=== PATIENT | male | born 1975 | race Caucasian/White ===

== ENCOUNTER 2016-11-15 03:46 | Inpatient (IN) | payer OTHER ==
[~2016-11-15] VITALS: Ht 182.9 cm; Wt 127.0 kg
[~2016-11-15 03:46] MED LIST: CLOBETASOL PROP15 GM TOP; VISTARIL50 M1 PO
--- NOTE | 2016-11-15 04:00 | NUR ---
PT TO ED C/O DIFFUSE ABDOMINAL PAIN THAT RADIATES TO BACK. PT REPORTS ABDOMINAL PAIN STARTING AT 730 PM, GOING TO SLEEP AND WAKING UP WITH PAIN IN THE BACK. PT REPORTS VOMITING AFTER BURPING. PT DENIES N/D, FEVER AND CHILLS. PT DENIES URINARY SYMPTOMS
--- NOTE | 2016-11-15 04:00 | ED GI/GU/ABDOMINAL COMPLAINT ---
History of Present Illness General Chief Complaint: Abdominal Pain/Flank Pain Stated Complaint: ABD AND LOWER BACK PAIN Source: patient, old records Exam Limitations: no limitations Vital Signs & Intake/Output Vital Signs & Intake/Output Vital Signs Date Time Temp Pulse Resp B/P B/P Pulse O2 O2 Flow FiO2 Mean Ox Delivery Rate 11/15 0639 97.5 76 20 128/64 96 Room Air 11/15 0527 96.6 79 20 182/90 98 Room Air 11/15 0356 98.9 95 20 139/72 96 Room Air Allergies Coded Allergies: No Known Allergies (12/13/15) Reconcile Medications Atorvastatin Calcium (Lipitor) 80 MG TABLET 80 MG PO DAILY HIGH CHOLESTROL ( Reported) Clopidogrel Bisulfate (Clopidogrel) 75 MG TABLET 75 MG PO DAILY HIGH BLOOD PRESSURE (Reported) Ergocalciferol (Vitamin D2) (Vitamin D2) 50,000 UNIT CAPSULE 1 CAP PO DAILY HEALTH SUPPLEMENT (Reported) Fenofibric Acid (Choline) (Fenofibric Acid) 135 MG CAPSULE.DR 135 MG PO DAILY KIDNEY HEALTH (Reported) Lisinopril/Hydrochlorothiazide (Lisinopril-Hctz 10-12.5 MG Tab) 10 MG-12.5 MG TABLET 1 TAB PO BID HIGH BLOOD PRESSURE (Reported) Metoprolol Tartrate 25 MG TABLET 25 MG PO DAILY HIGH BLOOD PRESSURE (Reported ) Montelukast Sodium 10 MG TABLET 10 MG PO DAILY ALLERGIES (Reported) Triage Nurses Notes Reviewed? yes HPI: At approximately 8 PM last evening patient began to develop a discomfort feeling in his periumbilical and epigastric area that radiated to his back. The symptoms have worsened. Patient was able to go to sleep but then was within with the pain. At that point he became nauseous and vomited once. No fevers or chills. Patient was unable to sleep and again the pain woke him up and his tenderness was more intense. He rates the pain at 8 out of 10. It radiates as directed above. There is no aggravating or mitigating factors. Patient denies any diarrhea. There is no dysuria or hematuria. Past History Travel History Traveled to [place] past 21 day No Medical History Any Pertinent Medical History? see below for history Neurological: NONE EENT: NONE Cardiovascular: CAD Respiratory: NONE Gastrointestinal: NONE Hepatic: NONE Renal: NONE Musculoskeletal: NONE Psychiatric: NONE Endocrine: diabetes Blood Disorders: NONE Cancer(s): NONE Surgical History Surgical History: angioplasty Psychosocial History What is your primary language Peruvian Tobacco Use: Quit >30 days ago ETOH Use: occasional use Illicit Drug Use: denies illicit drug use Family History Hx Contributory? No Review of Systems Review of Systems Constitutional: Reports: no symptoms. EENTM: Reports: no symptoms. Respiratory: Reports: no symptoms. Cardiovascular: Reports: no symptoms. GI: Reports: see HPI, abdominal pain, nausea, vomiting. Genitourinary: Reports: no symptoms. Musculoskeletal: Reports: see HPI, back pain. Skin: Reports: no symptoms. Neurological/Psychological: Reports: no symptoms. Hematologic/Endocrine: Reports: no symptoms. Immunologic/Allergic: Reports: no symptoms. All Other Systems: Reviewed and Negative Physical Exam Physical Exam General Appearance: well developed/nourished, alert, awake, anxious, moderate distress Head: atraumatic, normal appearance Eyes: Bilateral: PERRL, EOMI. Ears, Nose, Throat, Mouth: hearing grossly normal, DRY MUCOSA Neck: normal inspection, supple, full range of motion Respiratory: normal breath sounds, chest non-tender, no respiratory distress, lungs clear Cardiovascular: regular rate/rhythm, normal peripheral pulses Gastrointestinal: normal bowel sounds, soft, non-tender, no organomegaly Back: normal inspection, normal range of motion, NO CVA TENDERNESS Extremities: normal range of motion Neurologic/Psych: no motor/sensory deficits, awake, alert, oriented x 3, normal gait, normal mood/affect Skin: intact, normal color, warm/dry Core Measures ACS in differential dx? No Severe Sepsis Present: No Septic Shock Present: No Progress Differential Diagnosis: AAA, AMI, appendicitis, biliary colic, cholecystitis, diverticulitis, gastritis, hepatitis, ischemic bowel, inflamm bowel dis, pancreatitis, peptic ulcer, PUD/GERD, SBO, ureterolithiasis, UTI/pyelo Plan of Care: Orders Procedure Date/time Status Admit to inpatient 11/15 534 Active URINALYSIS 11/15 356 Active TROPONIN LEVEL 11/15 356 Complete LIPASE 11/15 356 Complete COMPREHENSIVE METABOLIC PANEL 11/15 356 Complete CBC WITHOUT DIFFERENTIAL 11/15 356 Complete AMYLASE 11/15 356 Complete EKG 11/15 356 Active Laboratory Tests 11/15/16 0415: Anion Gap 13, Estimated GFR 39 L, BUN/Creatinine Ratio 21.1, Glucose 123 H, Calcium 9.9, Total Bilirubin 0.6, AST 43, ALT 75 H, Alkaline Phosphatase 57, Troponin I < 0.01, Total Protein 7.6, Albumin 4.7, Globulin 2.9, Albumin/ Globulin Ratio 1.6, Amylase 77, Lipase 105, CBC w Diff NO MAN DIFF REQ, RBC 5.11 , MCV 86.4, MCH 28.7, RDW 13.5, MPV 9.1, Gran % 69.6, Lymphocytes % 21.0, Monocytes % 6.8, Eosinophils % 2.2, Basophils % 0.4, Absolute Granulocytes 5.5, Absolute Lymphocytes 1.7, Absolute Monocytes 0.5, Absolute Eosinophils 0.2, Absolute Basophils 0, PUBS MCHC 33.2 Diagnostic Imaging: Viewed by Me: CT Scan. Discussed w/RAD: CT Scan. Radiology Impression: PATIENT: YAZ FELTON PRESENT AGE: 41 PATIENT ACCOUNT NO: [id number] : 76 LOCATION: [facility] ORDERING PHYSICIAN: GIUSEPPE OROZCO MD SERVICE DATE: 11/15/16 EXAM TYPE: CAT - CT ABD & PELVIS W/O IV CONTRAS CT ABDOMEN AND PELVIS WITHOUT CONTRAST CLINICAL INFORMATION: Bilateral flank pain. COMPARISON: None available. TECHNIQUE: Multidetector volumetric imaging was performed from the superior aspect of the liver through the pubic symphysis. Sagittal and coronal reformatted images were obtained on the technologist's workstation. FINDINGS: There is a small bowel obstruction. The stomach and proximal small bowel are significantly dilated and fluid-filled the level of a transition point within the left mid abdomen and fecalized small bowel just proximal to the transition point. Bowel is otherwise unremarkable. There is no free air. The appendix is normal. The lung bases are clear. Limited evaluation of the unenhanced liver, spleen, adrenal glands, gallbladder, and pancreas reveals no definite abnormality. The kidneys are symmetric in size without evidence of hydronephrosis or nephrolithiasis. The pelvic viscera are normal. No pelvic adenopathy. No free fluid within the pelvis. There are no acute osseous abnormalities. There is a small fat- containing umbilical hernia. IMPRESSION: - Imaging findings compatible with a small bowel obstruction with a transition point within the left mid abdomen, proximal to which there is significantly distended fecalized small bowel. - No radiopaque renal or ureteral calculi. No hydroureteronephrosis. DICTATED BY: KATLYN MASTERSON MD DATE/TIME DICTATED:11/15/16512 DIRECTOR PHYSICAL THERAPY:YEFRI DATE/TIME TRANSCRIBED:11/15/16512 CONFIDENTIAL, DO NOT COPY WITHOUT APPROPRIATE AUTHORIZATION. <Electronically signed in Other Vendor System> SIGNED BY: KATLYN MASTERSON MD 11/15/16522 Initial ED EKG: NSR, no ST T wave changes Prior EKG: unchanged Comments: NO RELIEF FROM TORADOL. Departure Departure Disposition: STILL A PATIENT Condition: Stable Clinical Impression Primary Impression: SBO (small bowel obstruction) Referrals: ALINA NEWTON,DARIUS Diamond (PCP/Family) Departure Forms: Customer Survey General Discharge Information Admission Note Spoke With: RUBEN NEWTON,COY Guevara Documentation of Exam: Documentation of any treatments & extenuating circumstances including Concerns Regarding Discharge (functional status, medication knowledge or non-compliance, living conditions, etc.) that warrant an admission rather than observation: [NPO , IV FLUIDS, BOWEL REST, PAIN CONTROL, MAY REQUIRE SURGERY] , IV FLUIDS, BOWEL REST, PAIN CONTROL, MAY REQUIRE SURGERY]
--- NOTE | 2016-11-15 04:11 | NUR ---
EKG DONE AND SHOWN TO DR. OROZCO.
--- NOTE | 2016-11-15 04:17 | NUR ---
THIS RN ESTABLISHED IV ACCESS IN LFA #20 WITH LABS DRAWN AND SENT (SST, JACKSON, LAV, BLUE)
--- NOTE | 2016-11-15 04:23 | NUR ---
PT MEDICATED WITH 4MG ZOFRAN IV, 30MG TORADOL IV, AND LITER #1 NS BOLUS INFUSING PER EMAR.
[2016-11-15 04:24] LABS: ABSOLUTE BASOPHIL COUNT 0 /CUMM (0.0-0.2); ABSOLUTE EOSINOPHIL COUNT 0.2 /CUMM (0.0-0.7); ABSOLUTE GRANULOCYTE CT 5.5 /CUMM (1.4-6.5); ABSOLUTE LYMPH COUNT 1.7 /CUMM (1.2-3.4); ABSOLUTE MONOCYTE COUNT 0.5 /CUMM (0.10-0.60); BASOPHIL % 0.4 % (0.0-2.0); EOSINOPHIL % 2.2 % (0-5); GRANULOCYTE % 69.6 % (42.2-75.2); HEMATOCRIT 44.2 % (42-52); MEAN CORPUSCULAR HGB 28.7 PG (27.0-31.0); MEAN CORPUSCULAR HGB CONC 33.2 G/DL (33.0-37.0); MEAN CORPUSCULAR VOLUME 86.4 FL (80.0-94.0); MEAN PLATELET VOLUME 9.1 FL (7.4-10.4); PLATELET COUNT 282 /CUMM (130-400); RBC DISTRIBUTION WIDTH 13.5 % (11.5-14.5); RED BLOOD CELL CT 5.11 /CUMM (4.70-6.10); WHITE BLOOD CELL COUNT 7.9 /CUMM (4.8-10.8)
--- NOTE | 2016-11-15 04:24 | NUR ---
PT AWAITING CT SCAN
--- NOTE | 2016-11-15 04:43 | NUR ---
PT MEDICATED WITH 4MG MORPHINE IV PER EMAR.
--- NOTE | 2016-11-15 04:53 | NUR ---
PT BACK FROM RAD.
--- NOTE | 2016-11-15 05:23 | CT SCAN REPORT ---
CT ABDOMEN AND PELVIS WITHOUT CONTRAST CLINICAL INFORMATION: Bilateral flank pain. COMPARISON: None available. TECHNIQUE: Multidetector volumetric imaging was performed from the superior aspect of the liver through the pubic symphysis. Sagittal and coronal reformatted images were obtained on the technologist's workstation. FINDINGS: There is a small bowel obstruction. The stomach and proximal small bowel are significantly dilated and fluid-filled the level of a transition point within the left mid abdomen and fecalized small bowel just proximal to the transition point. Bowel is otherwise unremarkable. There is no free air. The appendix is normal. The lung bases are clear. Limited evaluation of the unenhanced liver, spleen, adrenal glands, gallbladder, and pancreas reveals no definite abnormality. The kidneys are symmetric in size without evidence of hydronephrosis or nephrolithiasis. The pelvic viscera are normal. No pelvic adenopathy. No free fluid within the pelvis. There are no acute osseous abnormalities. There is a small fat-containing umbilical hernia. IMPRESSION: - Imaging findings compatible with a small bowel obstruction with a transition point within the left mid abdomen, proximal to which there is significantly distended fecalized small bowel. - No radiopaque renal or ureteral calculi. No hydroureteronephrosis.
--- NOTE | 2016-11-15 05:39 | NUR ---
PT STILL C/O / PAIN. PT MEDICATED WITH 4MG MORPHINE PER ORDER
[2016-11-15] MEDS ORDERED: MONTELUKAST SOD10 M1 PO (06:01)
[2016-11-15] MEDS ORDERED: LISINOPRIL-HCT1 EAC2 PO (06:02)
[2016-11-15] MEDS ORDERED: METOPROLOL TART25 M1 PO (06:02)
[2016-11-15] MEDS ORDERED: CLOPIDOGREL75 M1 PO (06:03)
[2016-11-15] MEDS ORDERED: LIPITOR80 M1 PO (06:05)
[2016-11-15] MEDS ORDERED: VITAMIN D250000 UNIT PO (06:06)
[2016-11-15] MEDS ORDERED: FENOFIBRIC ACI135 M1 PO (06:08)
--- NOTE | 2016-11-15 06:09 | NUR ---
PT A/O X4. RESP UNLABORED. SKIN WARM AND DRY. 96% RA. WILL CONTINUE TO MONITOR.
--- NOTE | 2016-11-15 06:09 | NUR ---
PT STILL C/O 12/03 PAIN. PT MEDICATED WITH 1MG HYDROMORPHONE
--- NOTE | 2016-11-15 07:07 | NUR ---
ASSUMED CARE OF PT WHO IS A&O X3. PT STATES HIS PAIN IS STARTING TO COME BACK. DR OROZCO MADE AWARE. PT CHANGING INTO GOWN PRESENTLY AND IS AWARE HE IS WAITING FOR SURGICAL CONSULT. WILL CTM
--- NOTE | 2016-11-15 07:23 | NUR ---
SURGERY AT BEDSIDE FOR EVALUATION
[2016-11-15] MEDS ORDERED: ASPIRIN EC81 M1 PO (07:56)
--- NOTE | 2016-11-15 08:07 | Admission Core Measures ---
Admission Lab Results I reviewed the following labs: Laboratory Tests 11/15 11/15 0656 0415 Chemistry Sodium (137 - 145 mmol/L) 140 Potassium (3.5 - 5.1 mmol/L) 4.3 Chloride (98 - 107 mmol/L) 97 L Carbon Dioxide (22 - 30 mmol/L) 30 Anion Gap (5 - 16) 13 BUN (9 - 20 mg/dL) 40 H Creatinine (0.7 - 1.2 mg/dL) 1.9 H Estimated GFR (>60 ml/min) 39 L BUN/Creatinine Ratio (7 - 25 %) 21.1 Glucose (65 - 99 mg/dL) 123 H Calcium (8.4 - 10.2 mg/dL) 9.9 Total Bilirubin (0.2 - 1.3 mg/dL) 0.6 AST (17 - 59 U/L) 43 ALT (21 - 72 U/L) 75 H Alkaline Phosphatase (< 127 U/L) 57 Troponin I (<0.11 ng/ml) < 0.01 Total Protein (6.3 - 8.2 g/dL) 7.6 Albumin (3.5 - 5.0 g/dL) 4.7 Globulin (1.9 - 4.2 gm/dL) 2.9 Albumin/Globulin Ratio (1.1 - 2.2 %) 1.6 Amylase (30 - 110 U/L) 77 Lipase (23 - 300 U/L) 105 Hematology CBC w Diff NO MAN DIFF REQ WBC (4.8 - 10.8 /CUMM) 7.9 RBC (4.70 - 6.10 /CUMM) 5.11 Hgb (14.0 - 18.0 G/DL) 14.6 Hct (42 - 52 %) 44.2 MCV (80.0 - 94.0 FL) 86.4 MCH (27.0 - 31.0 PG) 28.7 RDW (11.5 - 14.5 %) 13.5 Plt Count (130 - 400 /CUMM) 282 MPV (7.4 - 10.4 FL) 9.1 Gran % (42.2 - 75.2 %) 69.6 Lymphocytes % (20.5 - 51.1 %) 21.0 Monocytes % (1.7 - 9.3 %) 6.8 Eosinophils % (0 - 5 %) 2.2 Basophils % (0.0 - 2.0 %) 0.4 Absolute Granulocytes (1.4 - 6.5 /CUMM) 5.5 Absolute Lymphocytes (1.2 - 3.4 /CUMM) 1.7 Absolute Monocytes (0.10 - 0.60 /CUMM) 0.5 Absolute Eosinophils (0.0 - 0.7 /CUMM) 0.2 Absolute Basophils (0.0 - 0.2 /CUMM) 0 PUBS MCHC (33.0 - 37.0 G/DL) 33.2 Urines Urinalysis LIGHT H Urine Color (YEL,AMB,STR) YEL Urine Clarity (CLEAR) CLEAR Urine pH (5.0 - 8.0) 6.0 Ur Specific [place] (1.001 - 1.035) 1.020 Urine Protein (NEG,<30 MG/DL) TRACE H Urine Ketones (NEG) NEG Urine Nitrite (NEG) NEG Urine Bilirubin (NEG) NEG Urine Urobilinogen (0.1 - 1.0 EU/dl) 0.2 Ur Leukocyte Esterase (NEG) NEG Ur Microscopic SEDIMENT EXAMINED Urine WBC (0 - 2 /HPF) RARE Ur Epithelial Cells (NONE,FEW) RARE Urine Bacteria (NEG/NONE) RARE H Urine Hemoglobin (NEG) NEG Urine Glucose (N MG/DL) NEG Admission Meds I reviewed the following Meds: Current Medications Sig/Markel Start time Last Medication Dose Stop Time Status Admin Famotidine 20 MG BID 11/15 1000 UNVr (Pepcid) Heparin Sodium 5,000 UNIT Q8 11/15 2200 UNVr (Porcine) Hydromorphone HCl 0.4 MG Q2-3 HRS NEEDED.. 11/15 0815 UNVr (Dilaudid) Hydromorphone HCl 0.6 MG Q2-3 HRS NEEDED.. 11/15 0815 UNVr (Dilaudid) Hydromorphone HCl 0.2 MG Q2-3 HRS NEEDED.. 11/15 0800 UNVr (Dilaudid) Insulin Human Regular 0 Q4 11/15 1000 UNVr (NovoLIN R) Metoprolol Tartrate 25 MG BID 11/15 1000 UNVr (Lopressor) Ondansetron HCl 4 MG Q6P PRN 11/15 0800 UNVr (Zofran) Phenol 2 SPRAY Q2P PRN 11/15 0815 UNVr (Chloraseptic (Phenaseptic) Raymond) Sodium Chloride 1,000 ML Q8H 11/15 0800 UNVr (Normal Saline 0.9%) Acute Coronary Syndrome Inclusion Criteria ACS Diagnosis No Inpatient Core Measures LDL Reminder: If No, please order W/I first 24hr of stay Congestive Heart Failure Inclusion Criteria CHF Diagnosis No Cerebrovascular accident Inclusion Criteria CVA/TIA Diagnosis No Inpatient Core Measures Bedside Swallow Eval Reminder: If BSE failed, place ST order Antithrombotic Reminder: Order Antithrombotic Medication by end of day 2 Antithrombotic Reminder: Document Reason Antithrombotic Not ordered by end of day 2 AFIB/Flutter Reminder: If Present, add to problem list AFIB/Flutter Reminder: Order Anticoag Medication for pts with AFIB/Flutter Atherosclerosis Reminder: If Present, add to problem list LDL Reminder: If No, please order W/I first 24hr of stay PT Order Reminder: If No, please order Venous thromboembolism Inpatient Core Measures VTE Risk Factors: Age > 40, Obesity [facility] d/t No contraindications No VTE Pharm Prophylaxis d/t No contraindications Inclusion Criteria - Per Current guidelines, there needs to be overlap - treatment for the first 5 days of Warfarin therapy. - Parenteral Anticoagulation (IV or SC) needs to be - given along with Warfarin therapy. VTE Diagnosis No VTE Type NONE VTE Confirmed by (Test) NONE Problem List As ranked by this Provider includes Assessment & Plan 1. SBO (small bowel obstruction) 2. Acute kidney failure 3. Chronic kidney disease 4. Insulin dependent diabetes mellitus 5. Hypertension 6. H/O heart artery stent HOME MEDS Home Med List Aspirin (Ecotrin*) 81 MG TABLET. 1 TAB PO DAILY HX CARDIAC STENT (Reported) Atorvastatin Calcium (Lipitor) 80 MG TABLET 80 MG PO DAILY HIGH CHOLESTROL ( Reported) Clopidogrel Bisulfate (Clopidogrel) 75 MG TABLET 75 MG PO DAILY HIGH BLOOD PRESSURE (Reported) Ergocalciferol (Vitamin D2) (Vitamin D2) 50,000 UNIT CAPSULE 1 CAP PO DAILY HEALTH SUPPLEMENT (Reported) Fenofibric Acid (Choline) (Fenofibric Acid) 135 MG CAPSULE.DR 135 MG PO DAILY KIDNEY HEALTH (Reported) Lisinopril/Hydrochlorothiazide (Lisinopril-Hctz 10-12.5 MG Tab) 10 MG-12.5 MG TABLET 1 TAB PO BID HIGH BLOOD PRESSURE (Reported) Metoprolol Tartrate 25 MG TABLET 25 MG PO BID BLOOD PRESSURE (Reported) Montelukast Sodium 10 MG TABLET 10 MG PO DAILY ALLERGIES (Reported)
--- NOTE | 2016-11-15 08:30 | History & Physical Pre-Op ---
REEMA LUX 11/15/16 0807: General Information and HPI MD Statement: I have seen and personally examined YAZ FELTON and documented this H&P. The patient is a 41 year old M who presented with a patient stated chief complaint of [ABDOMINAL PAIN]. Source of Information: patient History of Present Illness: This 41 year old white male with hx cad s/p cardiac stent, insulin-dependent diabetes with insulin pump, chronic kidney disease (reported baseline creatinine 1.7), hypertension, hyperlipidemia, presents with crampy abdominal pain. He reports the crampy pain started last night about an hour after eating food. He awoke from sleep around midnight with continued pain and an episode of vomiting. He denied any episodes of nausea. He reports +bm "normal" around 8 pm last night. Denies history of abdominal surgery. No prior episodes of abdominal pain like this. He does admit to following a "ketosis diet" over the last 7 weeks, with a 23 lb weight loss. He also admits to a "cheese binge" on monday (about 4 days ago), when he reportedly consumed about 7 cheese sticks at once. He denies any subsequent binging episodes. Although he usually has insulin pump, he is currently not connected in the ED. He had stopped his usual aspirin (but apparently hadn't been told to stop his daily plavix), in anticipation of an outpatient plastic surgery procedure for a cyst/bump on his scalp, which was planned for tomorrow (11/16/16). Allergies/Medications Allergies: Coded Allergies: No Known Allergies (12/13/15) Past History Medical History Neurological: NONE EENT: NONE Cardiovascular: CAD, hypertension, hyperlipidemia Respiratory: NONE Gastrointestinal: NONE Hepatic: NONE Renal: chronic kidney disease Musculoskeletal: NONE Psychiatric: NONE Endocrine: NONE (insulin dependent), diabetes Blood Disorders: NONE Cancer(s): NONE Surgical History Pertinent Surgical History: angioplasty Past Family/Social History Family History Relations & Conditions if any Relation not specified for: FH: coronary artery disease Psychosocial History ETOH Use: occasional use Illicit Drug Use: denies illicit drug use Review of Systems Review of Systems: admits: abdominal pain, vomiting denies: dizziness, shortness of breath, chest pains, nauseam, f/c/s Exam & Diagnostic Data Last 24 Hrs of Vital Signs/I&O Vital Signs Date Time Temp Pulse Resp B/P B/P Pulse O2 O2 Flow FiO2 Mean Ox Delivery Rate 11/15 0639 97.5 76 20 128/64 96 Room Air 11/15 0527 96.6 79 20 182/90 98 Room Air 11/15 0356 98.9 95 20 139/72 96 Room Air Intake & Output 11/15 1600 11/15 0800 11/15 0000 Intake Total 100 2000 Output Total 100 Balance 0 2000 Intake, IV 2000 Intake, Other 100 Output, 100 Gastric Drainage Patient 280 lb Weight Physical Exam: General - alert & oriented x 3. comfortable. no acute distress. Skin - warm, dry, and smooth Lungs - clear bilaterally. no w/r/r. Cardiac - s1s2. reg. Abdomen - soft. no scars visualized. diffusely tender, but without acute abdominal findings. nondistended. no hernias appreciated. Extremities - warm bilaterally. no w/r/r. Calves soft and nontender b/l. Neuro - speech smooth & coordinated. no motor / sensory deficits. Last 24 Hrs of Labs/Jamison: Laboratory Tests 11/15/16 0656: Urinalysis LIGHT H, Urine Color YEL, Urine Clarity CLEAR, Urine pH 6.0, Ur Specific [place] 1.020, Urine Protein TRACE H, Urine Ketones NEG, Urine Nitrite NEG, Urine Bilirubin NEG, Urine Urobilinogen 0.2, Ur Leukocyte Esterase NEG, Ur Microscopic SEDIMENT EXAMINED, Urine WBC RARE, Ur Epithelial Cells RARE, Urine Bacteria RARE H, Urine Hemoglobin NEG, Urine Glucose NEG 11/15/16 0415: Anion Gap 13, Estimated GFR 39 L, BUN/Creatinine Ratio 21.1, Glucose 123 H, Calcium 9.9, Total Bilirubin 0.6, AST 43, ALT 75 H, Alkaline Phosphatase 57, Troponin I < 0.01, Total Protein 7.6, Albumin 4.7, Globulin 2.9, Albumin/ Globulin Ratio 1.6, Amylase 77, Lipase 105, CBC w Diff NO MAN DIFF REQ, RBC 5.11 , MCV 86.4, MCH 28.7, RDW 13.5, MPV 9.1, Gran % 69.6, Lymphocytes % 21.0, Monocytes % 6.8, Eosinophils % 2.2, Basophils % 0.4, Absolute Granulocytes 5.5, Absolute Lymphocytes 1.7, Absolute Monocytes 0.5, Absolute Eosinophils 0.2, Absolute Basophils 0, PUBS MCHC 33.2 Diagnostic Data Other Results CT ABDOMEN AND PELVIS WITHOUT CONTRAST CLINICAL INFORMATION: Bilateral flank pain. COMPARISON: None available. TECHNIQUE: Multidetector volumetric imaging was performed from the superior aspect of the liver through the pubic symphysis. Sagittal and coronal reformatted images were obtained on the technologist's workstation. FINDINGS: There is a small bowel obstruction. The stomach and proximal small bowel are significantly dilated and fluid-filled the level of a transition point within the left mid abdomen and fecalized small bowel just proximal to the transition point. Bowel is otherwise unremarkable. There is no free air. The appendix is normal. The lung bases are clear. Limited evaluation of the unenhanced liver, spleen, adrenal glands, gallbladder, and pancreas reveals no definite abnormality. The kidneys are symmetric in size without evidence of hydronephrosis or nephrolithiasis. The pelvic viscera are normal. No pelvic adenopathy. No free fluid within the pelvis. There are no acute osseous abnormalities. There is a small fat-containing umbilical hernia. IMPRESSION: - Imaging findings compatible with a small bowel obstruction with a transition point within the left mid abdomen, proximal to which there is significantly distended fecalized small bowel. - No radiopaque renal or ureteral calculi. No hydroureteronephrosis. DICTATED BY: KATLYN MASTERSON MD DATE/TIME DICTATED:11/15/16512 SPINNING LATHE OPERATOR:YEFRI DATE/TIME TRANSCRIBED:11/15/16512 Assessment/Plan Assessment/Plan: This 41 year old white male with hx cad s/p cardiac stent, insulin-dependent diabetes with insulin pump, chronic kidney disease (reported baseline creatinine 1.7), hypertension, hyperlipidemia, presents with small bowel obstruction with likely associated food bezoar and dehydration with associated acute kidney injury npo / ivf ng tube decompression pain control as needed endocrine consult called () for iddm / insulin pump currently detached accuchecks q4 / ss coverage hold lisinopril / hctz continue metoprolol bid hep sc - dvt ppx pepcid iv - gi ppx hold aspirin / plavix. will need to reschedule outpatient plastic surgery procedure (planned 11/16) discussed above with As Ranked By This Provider Problem List: 1. Acute kidney failure 2. Chronic kidney disease 3. Hypertension 4. H/O heart artery stent 5. Insulin dependent diabetes mellitus 6. SBO (small bowel obstruction) Copies To: ALINA NEWTON,DARIUS MIRANDA MD,[facility] 11/15/16 1254: General Information and HPI Allergies/Medications Home Med list Aspirin (Ecotrin*) 81 MG TABLET.DR 1 TAB PO DAILY HX CARDIAC STENT (Reported) Atorvastatin Calcium (Lipitor) 80 MG TABLET 80 MG PO DAILY HIGH CHOLESTROL ( Reported) Clopidogrel Bisulfate (Clopidogrel) 75 MG TABLET 75 MG PO DAILY HIGH BLOOD PRESSURE (Reported) Ergocalciferol (Vitamin D2) (Vitamin D2) 50,000 UNIT CAPSULE 1 CAP PO DAILY HEALTH SUPPLEMENT (Reported) Fenofibric Acid (Choline) (Fenofibric Acid) 135 MG CAPSULE.DR 135 MG PO DAILY KIDNEY HEALTH (Reported) Insulin Pump Controller (Snap Insulin Pump Controller) (Unknown Strength) EACH (Unknown Dose) insulin dependent diabetes (Reported) Lisinopril/Hydrochlorothiazide (Lisinopril-Hctz 10-12.5 MG Tab) 10 MG-12.5 MG TABLET 1 TAB PO BID HIGH BLOOD PRESSURE (Reported) Metoprolol Tartrate 25 MG TABLET 25 MG PO BID BLOOD PRESSURE (Reported) Montelukast Sodium 10 MG TABLET 10 MG PO DAILY ALLERGIES (Reported) Attending MD Review Statement Attending Statement Attending MD Statement: examined this patient, discuss w/resident/PA/ELECTRICAL DISCHARGE MACHINE OPERATOR, reviewed images Attending Assessment/Plan: signs and symptoms of intestinal obstruction. Ct shows same with proximal obstruction. Unusual finding in light of no prior abdominal surgery. ? food impaction. No findings to suggest threatened bowel loop. Observe, bowel rest/ngt /ivf.
--- NOTE | 2016-11-15 08:49 | RADIOLOGY REPORT ---
EXAMINATION:\\H\\ \\N\\XR CHEST/UPPER ABDOMEN CLINICAL INFORMATION: NG tube placement. COMPARISON: CT of the abdomen done earlier today. (Small bowel obstruction). TECHNIQUE: 2 AP erect films of the upper abdomen. FINDINGS: The tip of the NG tube is in the dilated fluid and air-filled stomach. The "[place] gas pattern" in the midabdomen supports the diagnosis of small bowel obstruction. Air and stool are seen in the colon. However, and the obstruction is presumably incomplete or early. The dilated small bowel loops are best appreciated on the CT exam. IMPRESSION: NG tube in a dilated stomach.
--- NOTE | 2016-11-15 09:30 | NUR ---
FAMILY MEMBER AT BEDSIDE. PT TOLERATING NG TUBE.
--- NOTE | 2016-11-15 11:42 | NUR ---
Patient resting quietly. NGT to R nare remains patent and to low wall suction.
--- NOTE | 2016-11-15 12:47 | NUR ---
BED ASSIGNMENT [id number]
--- NOTE | 2016-11-15 13:14 | NUR ---
Assigned bed not available at this time. Room is not clean at this time.
--- NOTE | 2016-11-15 13:37 | Cons- Endocrinology ---
General Information and HPI Consulting Request Date of Consult: 11/15/16 Requested By: Surgical team Reason for Consult: management of DM Source of Information: patient, old records Exam Limitations: no limitations History of Present Illness: 41 year old white male with hx CAD s/p cardiac stent, insulin-dependent diabetes with insulin pump, chronic kidney disease (reported baseline creatinine 1.7), hypertension, hyperlipidemia, presents with crampy abdominal pain. He was diagnosed with SBO. He was kept NPO and was put on NS at 125 ml/hour. Insulin pump was disconnected approximately 4 hours ago and his FSG was 235 at 8 am. Insulin pump setting: basal insulin: 89.95 units /24 hours midnight 3.25 units per hour; 3 am 3.75 units per hour 7:30 am 3.6 units per hour 11 am 2.5 units per hour 12 pm 3.2 units per hour 4 pm 4.75 units per hour 10:30 pm 3.0 units per hour IC ratio midnight 10 grams 8:30 am 8.o grams 4:30 pm 3.8 grams 8:30 pm 8 grams insulin sensitivity midnight 25 mg/dl 9 pm 40 mg/dl target 100 -100 mg/dl active insulin time 3 hours Allergies/Medications Allergies: Coded Allergies: No Known Allergies (12/13/15) Home Med List: Aspirin (Ecotrin*) 81 MG TABLET.DR 1 TAB PO DAILY HX CARDIAC STENT (Reported) Atorvastatin Calcium (Lipitor) 80 MG TABLET 80 MG PO DAILY HIGH CHOLESTROL ( Reported) Clopidogrel Bisulfate (Clopidogrel) 75 MG TABLET 75 MG PO DAILY HIGH BLOOD PRESSURE (Reported) Ergocalciferol (Vitamin D2) (Vitamin D2) 50,000 UNIT CAPSULE 1 CAP PO DAILY HEALTH SUPPLEMENT (Reported) Fenofibric Acid (Choline) (Fenofibric Acid) 135 MG CAPSULE.DR 135 MG PO DAILY KIDNEY HEALTH (Reported) Lisinopril/Hydrochlorothiazide (Lisinopril-Hctz 10-12.5 MG Tab) 10 MG-12.5 MG TABLET 1 TAB PO BID HIGH BLOOD PRESSURE (Reported) Metoprolol Tartrate 25 MG TABLET 25 MG PO BID BLOOD PRESSURE (Reported) Montelukast Sodium 10 MG TABLET 10 MG PO DAILY ALLERGIES (Reported) Review of Systems Review of Systems Constitutional: Reports: see HPI. Cardiovascular: Denies: chest pain. Respiratory: Denies: short of breath. GI: Reports: abdominal pain. Hematologic/Endocrine: Denies: polyuria, polydipsia. Past History Travel History Traveled to [place] past 21 day No Medical History Neurological: NONE EENT: NONE Cardiovascular: CAD, hypertension, hyperlipidemia Respiratory: NONE Gastrointestinal: NONE Hepatic: NONE Renal: chronic kidney disease Musculoskeletal: NONE Psychiatric: NONE Endocrine: NONE (insulin dependent), diabetes Blood Disorders: NONE Cancer(s): NONE Surgical History Surgical History: angioplasty Family History Relations & Conditions If Any: Relation not specified for: FH: coronary artery disease Psychosocial History ETOH Use: occasional use Illicit Drug Use: denies illicit drug use Exam & Diagnostic Data Last 24 Hrs of Vital Signs/I&O Vital Signs Date Time Temp Pulse Resp B/P B/P Pulse O2 O2 Flow FiO2 Mean Ox Delivery Rate 11/15 1239 98.0 88 18 107/58 97 Room Air 11/15 1027 94 18 142/74 94 Room Air 11/15 1003 94 18 142/74 11/15 0639 97.5 76 20 128/64 96 Room Air 11/15 0527 96.6 79 20 182/90 98 Room Air 11/15 0356 98.9 95 20 139/72 96 Room Air Intake & Output 11/15 1600 11/15 0800 11/15 0000 Intake Total 100 2000 Output Total 100 Balance 0 2000 Intake, IV 2000 Intake, Other 100 Output, 100 Gastric Drainage Patient 280 lb Weight Physical Exam General Appearance: no apparent distress Neck: normal inspection Respiratory: lungs clear Cardiovascular: regular rate/rhythm Gastrointestinal: distention Extremities: no edema Labs/Jamison Results: Laboratory Tests 11/15 11/15 0656 0415 Chemistry Sodium (137 - 145 mmol/L) 140 Potassium (3.5 - 5.1 mmol/L) 4.3 Chloride (98 - 107 mmol/L) 97 L Carbon Dioxide (22 - 30 mmol/L) 30 Anion Gap (5 - 16) 13 BUN (9 - 20 mg/dL) 40 H Creatinine (0.7 - 1.2 mg/dL) 1.9 H Estimated GFR (>60 ml/min) 39 L BUN/Creatinine Ratio (7 - 25 %) 21.1 Glucose (65 - 99 mg/dL) 123 H Calcium (8.4 - 10.2 mg/dL) 9.9 Total Bilirubin (0.2 - 1.3 mg/dL) 0.6 AST (17 - 59 U/L) 43 ALT (21 - 72 U/L) 75 H Alkaline Phosphatase (< 127 U/L) 57 Troponin I (<0.11 ng/ml) < 0.01 Total Protein (6.3 - 8.2 g/dL) 7.6 Albumin (3.5 - 5.0 g/dL) 4.7 Globulin (1.9 - 4.2 gm/dL) 2.9 Albumin/Globulin Ratio (1.1 - 2.2 %) 1.6 Amylase (30 - 110 U/L) 77 Lipase (23 - 300 U/L) 105 Hematology CBC w Diff NO MAN DIFF REQ WBC (4.8 - 10.8 /CUMM) 7.9 RBC (4.70 - 6.10 /CUMM) 5.11 Hgb (14.0 - 18.0 G/DL) 14.6 Hct (42 - 52 %) 44.2 MCV (80.0 - 94.0 FL) 86.4 MCH (27.0 - 31.0 PG) 28.7 RDW (11.5 - 14.5 %) 13.5 Plt Count (130 - 400 /CUMM) 282 MPV (7.4 - 10.4 FL) 9.1 Gran % (42.2 - 75.2 %) 69.6 Lymphocytes % (20.5 - 51.1 %) 21.0 Monocytes % (1.7 - 9.3 %) 6.8 Eosinophils % (0 - 5 %) 2.2 Basophils % (0.0 - 2.0 %) 0.4 Absolute Granulocytes (1.4 - 6.5 /CUMM) 5.5 Absolute Lymphocytes (1.2 - 3.4 /CUMM) 1.7 Absolute Monocytes (0.10 - 0.60 /CUMM) 0.5 Absolute Eosinophils (0.0 - 0.7 /CUMM) 0.2 Absolute Basophils (0.0 - 0.2 /CUMM) 0 PUBS MCHC (33.0 - 37.0 G/DL) 33.2 Urines Urinalysis LIGHT H Urine Color (YEL,AMB,STR) YEL Urine Clarity (CLEAR) CLEAR Urine pH (5.0 - 8.0) 6.0 Ur Specific [place] (1.001 - 1.035) 1.020 Urine Protein (NEG,<30 MG/DL) TRACE H Urine Ketones (NEG) NEG Urine Nitrite (NEG) NEG Urine Bilirubin (NEG) NEG Urine Urobilinogen (0.1 - 1.0 EU/dl) 0.2 Ur Leukocyte Esterase (NEG) NEG Ur Microscopic SEDIMENT EXAMINED Urine WBC (0 - 2 /HPF) RARE Ur Epithelial Cells (NONE,FEW) RARE Urine Bacteria (NEG/NONE) RARE H Urine Hemoglobin (NEG) NEG Urine Glucose (N MG/DL) NEG Assessment/Plan Assessment/Plan 41 year old white male with hx CAD s/p cardiac stent, insulin-dependent diabetes with insulin pump, chronic kidney disease (reported baseline creatinine 1.7), hypertension, hyperlipidemia, presents with crampy abdominal pain. He was diagnosed with SBO. He was kept NPO and was put on NS at 125 ml/hour. plan: 1. as per hospital policy, insulin pump will be held at this point. 2. start Levemir 30 units twice a day; 3. start Novolog coverage every 4 hours;detail see the inpatient DM order; 4. monitor FSGs; 5. monitor electrolytes and renal function in the afternoon; will follow. Please call if there are any questions. I will consider adding dextrose to his IVF if his FSG is < 140. Inpatient Diabetes Orders Every 4 Hours: Bolus Insulin: Novolog < 80 mg/dl: no coverage 80-100 mg/dl: no coverage 101-120 mg/dl: no coverage 121-150 mg/dl: no coverage 151-200 mg/dl: 2 units 201-250 mg/dl: 4 units 251-300 mg/dl: 6 units 301-350 mg/dl: 8 units 351-400 mg/dl: 10 units > 400 mg/dl: 12 units Consult Acknowledgment - Thank you for your consult request.
--- NOTE | 2016-11-15 13:39 | NUR ---
Patient is currently able to pass flatus. BS + all 4 quads.
--- NOTE | 2016-11-15 14:00 | NUR ---
PATIENT IS UP TO BR. ABLE TO AMBULATE W/O ASSISTANCE. ABLE TO HAVE REGULAR BM.
--- NOTE | 2016-11-15 15:30 | NUR ---
UP TO BR FOR THE 3RD TIME. REQUESTING TO HAVE NGT REMOVED. HAVE SPOKEN W/ SURGICAL PA. SHE WILL CHECK W/ ATTENDING AND RETURN THE CALL.
--- NOTE | 2016-11-15 15:37 | Patient Discharge Instructions ---
Discharge Instructions General Discharge Information You were seen/treated for: small bowel obstruction, dehydration You had these procedures: nasogastric tube decompression, iv fluids Watch for these problems: fever>101.3, increased abdominal pain, recurrent nausea/vomiting Diet Continue normal diet: Yes Recommended Diet: Diabetic Activity Full Activity/No Limits: Yes Activity Self Limited: Yes Acute Coronary Syndrome Inclusion Criteria At DC or during hospital stay patient has or had the following: ACS DIAGNOSIS No Discharge Core Measures Meds if any: Prescribed or Continued at Discharge Meds if any: NOT Prescribed or Continued at Discharge Congestive Heart Failure Inclusion Criteria At DC or during hospital stay patient has or had the following: CHF DIAGNOSIS No Discharge Core Measures Meds if any: Prescribed or Continued at Discharge Meds if any: NOT Prescribed or Continued at Discharge Cerebrovascular accident Inclusion Criteria At DC or during hospital stay patient has or had the following: CVA/TIA Diagnosis No Discharge Core Measures Meds if any: Prescribed or Continued at Discharge Meds if any: NOT Prescribed or Continued at Discharge Venous thromboembolism Inclusion Criteria VTE Diagnosis No VTE Type NONE VTE Confirmed by (Test) NONE Discharge Core Measures - Per Current guidelines, there needs to be overlap - treatment for the first 5 days of Warfarin therapy. - If discharged on Warfarin prior to 5 days of - overlap therapy, the patient will need to be - assessed for post discharge needs including - *Post discharge parental anticoagulation - *Warfarin and/or parental anticoagulation education - *Follow up date to check INR post discharge At least 5 days overlap therapy as Inpatient No Meds if any: Prescribed or Continued at Discharge Note: Overlap Therapy is Warfarin and Anticoagulant Meds if any: NOT Prescribed or Continued at Discharge
[2016-11-15] MEDS ORDERED: SNAP INSULIN P1 EACH (15:39)
--- NOTE | 2016-11-15 16:00 | NUR ---
LABS DRAWN AND SENT
--- NOTE | 2016-11-15 16:30 | NUR ---
ADMISSION NOTE: PT ARRIVED TO FLOOR IN [facility] WITH DISTRIBUTION AND MOTHER, A/OX3, ROOM AIR, IV INTACT, IVF RUNNING PER MD ORDER, NG TUBE TO RT NARE, PAIN 7/10 TO RT NARE, 3/10 PAIN TO ABD, ORDER TO DC NG TUBE, PT TOLERATED PROCEDURE VERY WELL!, VSS, ORIENTED TO ROOM, WILL CONTINUE TO MONTIOR.
[2016-11-15 16:38] VITALS: BP 168/100
--- NOTE | 2016-11-15 16:44 | RADIOLOGY REPORT ---
EXAMINATION: XR ABDOMEN MULTIPLE VIEWS CLINICAL INDICATION: 41-year-old male patient with NG tube. Bowel obstruction. COMPARISON: CT of the abdomen and pelvis at 4:40 AM today and upper abdominal x-ray at 8:22 AM today TECHNIQUE: AP supine and erect views of the abdomen, 3 exposures. FINDINGS: The tip of the NG tube remains in the stomach. There is now air throughout the colon to the rectum. The stomach contains some air and fluid. The visualized small bowel is not dilated and no short air-fluid levels are seen. IMPRESSION: The bowel obstruction has evidently resolved. The NG tube is in the stomach. No free air is appreciated.
[2016-11-15 23:09] VITALS: BP 124/60
--- NOTE | 2016-11-16 07:32 | PN- General Surgery ---
See Addendum Subjective Subjective: improved, no n/v, no abd pain, +oob, +flatus, +bm (more formed now), hungry Objective Vital Signs and I&Os Vital Signs Date Time Temp Pulse Resp B/P B/P Pulse O2 O2 Flow FiO2 Mean Ox Delivery Rate 11/15 2309 98.4 77 18 124/60 95 Room Air 11/15 2208 77 124/60 11/15 1638 97.5 77 18 168/100 95 11/15 1526 98.2 84 18 122/60 98 Room Air 11/15 1239 98.0 88 18 107/58 97 Room Air 11/15 1027 94 18 142/74 94 Room Air 11/15 1003 94 18 142/74 Intake & Output 11/16 0800 11/16 0000 11/15 1600 11/15 0800 11/15 0000 11/14 1600 Intake Total 940 919 5649 Output Total 500 700 Balance 240 -600 2000 Intake, IV 500 2000 Intake, Oral 240 Intake, Other 100 Number 0 2 Bowel Movements Output, 700 Gastric Drainage Output, Urine 500 Patient 280 lb 280 lb Weight FINGERSTICKS: 80, 135, 224, 248 Physical Exam: gen: nad card: s1s2 rrr pulm: ctab abd: obese, soft, nt, nd ext: calves soft nt bl Results Last 48 Hours of Labs: Laboratory Tests 11/16 11/15 11/15 0700 1600 0656 Chemistry Sodium (137 - 145 mmol/L) Pending 138 Potassium (3.5 - 5.1 mmol/L) Pending 4.8 Chloride (98 - 107 mmol/L) Pending 104 Carbon Dioxide (22 - 30 mmol/L) Pending 22 Anion Gap (5 - 16) Pending 12 BUN (9 - 20 mg/dL) Pending 44 H Creatinine (0.7 - 1.2 mg/dL) Pending 2.0 H Estimated GFR (>60 ml/min) 37 L BUN/Creatinine Ratio (7 - 25 %) Pending 22.0 Glucose (65 - 99 mg/dL) 169 H Magnesium (1.6 - 2.3 mg/dL) Pending 2.1 Hematology CBC w Diff Pending WBC Pending RBC Pending Hgb Pending Hct Pending MCV Pending MCH Pending RDW Pending Plt Count Pending MPV Pending PUBS MCHC Pending Urines Urinalysis LIGHT H Urine Color (YEL,AMB,STR) YEL Urine Clarity (CLEAR) CLEAR Urine pH (5.0 - 8.0) 6.0 Ur Specific [place] (1.001 - 1.035) 1.020 Urine Protein (NEG,<30 MG/DL) TRACE H Urine Ketones (NEG) NEG Urine Nitrite (NEG) NEG Urine Bilirubin (NEG) NEG Urine Urobilinogen (0.1 - 1.0 EU/dl) 0.2 Ur Leukocyte Esterase (NEG) NEG Ur Microscopic SEDIMENT EXAMINED Urine WBC (0 - 2 /HPF) RARE Ur Epithelial Cells (NONE,FEW) RARE Urine Bacteria (NEG/NONE) RARE H Urine Hemoglobin (NEG) NEG Urine Glucose (N MG/DL) NEG 11/15 0415 Chemistry Sodium (137 - 145 mmol/L) 140 Potassium (3.5 - 5.1 mmol/L) 4.3 Chloride (98 - 107 mmol/L) 97 L Carbon Dioxide (22 - 30 mmol/L) 30 Anion Gap (5 - 16) 13 BUN (9 - 20 mg/dL) 40 H Creatinine (0.7 - 1.2 mg/dL) 1.9 H Estimated GFR (>60 ml/min) 39 L BUN/Creatinine Ratio (7 - 25 %) 21.1 Glucose (65 - 99 mg/dL) 123 H Calcium (8.4 - 10.2 mg/dL) 9.9 Total Bilirubin (0.2 - 1.3 mg/dL) 0.6 AST (17 - 59 U/L) 43 ALT (21 - 72 U/L) 75 H Alkaline Phosphatase (< 127 U/L) 57 Troponin I (<0.11 ng/ml) < 0.01 Total Protein (6.3 - 8.2 g/dL) 7.6 Albumin (3.5 - 5.0 g/dL) 4.7 Globulin (1.9 - 4.2 gm/dL) 2.9 Albumin/Globulin Ratio (1.1 - 2.2 %) 1.6 Amylase (30 - 110 U/L) 77 Lipase (23 - 300 U/L) 105 Hematology CBC w Diff NO MAN DIFF REQ WBC (4.8 - 10.8 /CUMM) 7.9 RBC (4.70 - 6.10 /CUMM) 5.11 Hgb (14.0 - 18.0 G/DL) 14.6 Hct (42 - 52 %) 44.2 MCV (80.0 - 94.0 FL) 86.4 MCH (27.0 - 31.0 PG) 28.7 RDW (11.5 - 14.5 %) 13.5 Plt Count (130 - 400 /CUMM) 282 MPV (7.4 - 10.4 FL) 9.1 Gran % (42.2 - 75.2 %) 69.6 Lymphocytes % (20.5 - 51.1 %) 21.0 Monocytes % (1.7 - 9.3 %) 6.8 Eosinophils % (0 - 5 %) 2.2 Basophils % (0.0 - 2.0 %) 0.4 Absolute Granulocytes (1.4 - 6.5 /CUMM) 5.5 Absolute Lymphocytes (1.2 - 3.4 /CUMM) 1.7 Absolute Monocytes (0.10 - 0.60 /CUMM) 0.5 Absolute Eosinophils (0.0 - 0.7 /CUMM) 0.2 Absolute Basophils (0.0 - 0.2 /CUMM) 0 PUBS MCHC (33.0 - 37.0 G/DL) 33.2 Assessment/Plan Assessment/Plan HD1, improved. PLAN: diabetic full liquids cont IVF- fu Cr. Labs pdg appreciate Endo input. FS improved. No D5 added to IVF since diet advanced. OOB, hep sq DC planning Core Measures/Miscellaneous Venous Thromboembolism VTE Risk Factors: Age > 40 VTE Contraindications: No Contraindications VTE Diagnosis: No VTE Type: NONE VTE Confirmed by (Test): NONE Beta Thea Is Beta Thea a Home Med? Yes Antibiotics Is Patient on Antibiotics? No
[2016-11-16 07:42] VITALS: BP 141/76
[2016-11-16 08:05] LABS: ABSOLUTE BASOPHIL COUNT 0 /CUMM (0.0-0.2); ABSOLUTE EOSINOPHIL COUNT 0.2 /CUMM (0.0-0.7); ABSOLUTE GRANULOCYTE CT 3.1 /CUMM (1.4-6.5); ABSOLUTE LYMPH COUNT 1.6 /CUMM (1.2-3.4); ABSOLUTE MONOCYTE COUNT 0.4 /CUMM (0.10-0.60); BASOPHIL % 0.7 % (0.0-2.0); EOSINOPHIL % 3.7 % (0-5); GRANULOCYTE % 57.9 % (42.2-75.2); HEMATOCRIT 39.4 % (42-52); MEAN CORPUSCULAR HGB 29.3 PG (27.0-31.0); MEAN CORPUSCULAR HGB CONC 33.9 G/DL (33.0-37.0); MEAN CORPUSCULAR VOLUME 86.3 FL (80.0-94.0); MEAN PLATELET VOLUME 9.7 FL (7.4-10.4); PLATELET COUNT 266 /CUMM (130-400); RED BLOOD CELL CT 4.57 /CUMM (4.70-6.10); WHITE BLOOD CELL COUNT 5.4 /CUMM (4.8-10.8)
--- NOTE | 2016-11-16 09:03 | PN- Diabetes ---
Assessment/Plan Assessment: 41 year old white male with hx CAD s/p cardiac stent, insulin-dependent diabetes with insulin pump, chronic kidney disease (reported baseline creatinine 1.7), hypertension, hyperlipidemia, presents with crampy abdominal pain. He was diagnosed with SBO. He was started on clear liquid diet and will be on full liquid diet today. He is still receiving NS at 125 ml/hour. He wasput on Levemir 30 units twice a day, Novolog coverage every 4 hours. His FSGs were 135, 80 and 117. Plan: 1. continue Levemir 30 units twice a day; 2. stop Novolog coverage every 4 hours; 3. start Novolog coverage before meals and Novolog coverage at bedtime. 4. monitor FSGs; will follow Inpatient Diabetes Orders Before Each Meal: Bolus Insulin: Novolog < 80 mg/dl: no coverage 80-100 mg/dl: 2 units 101-120 mg/dl: 2 units 121-150 mg/dl: 2 units 151-200 mg/dl: 4 units 201-250 mg/dl: 6 units 251-300 mg/dl: 8 units 301-350 mg/dl: 10 units 351-400 mg/dl: 12 units > 400 mg/dl: 14 units Bedtime: Bolus Insulin: Novolog < 80 mg/dl: no coverage 80-100 mg/dl: no coverage 101-120 mg/dl: no coverage 121-150 mg/dl: no coverage 151-200 mg/dl: no coverage 201-250 mg/dl: no coverage 251-300 mg/dl: 2 units 301-350 mg/dl: 4 units 351-400 mg/dl: 6 units > 400 mg/dl: 8 units Subjective Subjective: He tolerated clear liquid diet. Objective Last 24 Hrs of Vital Signs/I&O Vital Signs Date Time Temp Pulse Resp B/P B/P Pulse O2 O2 Flow FiO2 Mean Ox Delivery Rate 11/16 0742 98.0 75 20 141/76 95 Room Air 11/15 2309 98.4 77 18 124/60 95 Room Air 11/15 2208 77 124/60 11/15 1638 97.5 77 18 168/100 95 11/15 1526 98.2 84 18 122/60 98 Room Air 11/15 1239 98.0 88 18 107/58 97 Room Air 11/15 1027 94 18 142/74 94 Room Air 11/15 1003 94 18 142/74 Intake & Output 11/16 1600 11/16 0800 11/16 0000 Intake Total 1240 740 Output Total 850 500 Balance -850 1240 240 Intake, IV 1000 500 Intake, Oral 240 240 Number 1 0 Bowel Movements Output, Urine 850 500 Patient 280 lb Weight Findings Pertinent Lab/Jamison Results: Laboratory Tests 11/16 11/15 0700 1600 Chemistry Sodium (137 - 145 mmol/L) 140 138 Potassium (3.5 - 5.1 mmol/L) 4.8 4.8 Chloride (98 - 107 mmol/L) 105 104 Carbon Dioxide (22 - 30 mmol/L) 24 22 Anion Gap (5 - 16) 11 12 BUN (9 - 20 mg/dL) 30 H 44 H Creatinine (0.7 - 1.2 mg/dL) 1.7 H 2.0 H Estimated GFR (>60 ml/min) 45 L 37 L BUN/Creatinine Ratio (7 - 25 %) 17.6 22.0 Glucose (65 - 99 mg/dL) 169 H Magnesium (1.6 - 2.3 mg/dL) 2.0 2.1 Hematology CBC w Diff NO MAN DIFF REQ WBC (4.8 - 10.8 /CUMM) 5.4 RBC (4.70 - 6.10 /CUMM) 4.57 L Hgb (14.0 - 18.0 G/DL) 13.4 L Hct (42 - 52 %) 39.4 L MCV (80.0 - 94.0 FL) 86.3 MCH (27.0 - 31.0 PG) 29.3 RDW (11.5 - 14.5 %) 14.0 Plt Count (130 - 400 /CUMM) 266 MPV (7.4 - 10.4 FL) 9.7 Gran % (42.2 - 75.2 %) 57.9 Lymphocytes % (20.5 - 51.1 %) 29.8 Monocytes % (1.7 - 9.3 %) 7.9 Eosinophils % (0 - 5 %) 3.7 Basophils % (0.0 - 2.0 %) 0.7 Absolute Granulocytes (1.4 - 6.5 /CUMM) 3.1 Absolute Lymphocytes (1.2 - 3.4 /CUMM) 1.6 Absolute Monocytes (0.10 - 0.60 /CUMM) 0.4 Absolute Eosinophils (0.0 - 0.7 /CUMM) 0.2 Absolute Basophils (0.0 - 0.2 /CUMM) 0 PUBS MCHC (33.0 - 37.0 G/DL) 33.9
[2016-11-16 09:27] VITALS: BP 141/76
--- NOTE | 2016-11-16 11:32 | Surg Short-stay <48hrs Dis Sum ---
Visit Information Visit Dates Admission Date: 11/15/16 Discharge Date: 11/16/16 Surgical Short Stay DC Summary Admission Diagnosis: SBO Final Diagnosis: SAME Procedure(s): NONE Summary/Significant Findings: QUICK RESOLUTION OF SBO, LIKELY CHEESE BEZOAR Condition at Discharge: GOOD Discharge Disposition: home or self care Discharge instructions provided to patient/family: Yes Post discharge follow-up plan: NONE
== END 2016-11-16 12:27 | DRG 390 ==
LOC: ERH 03:46 → 2NB 05:35 → ERHI 05:35 → ENRESERV 12:44 → ENTRNSPT 15:54 → 2NB 16:31 → CMPTRNSPT 11-16 07:18 → ENPENDDIS 11-16 09:33 → 2NB 11-16 12:27
PROVIDERS: Emergency Medicine; Physician Assistant; ADMIT Surgery
DX: K56.60 Unspecified intestinal obstruction (principal); T18.3XXA Foreign body in small intestine, initial encounter; E11.22 Type 2 diabetes mellitus with diabetic chronic kidney disease; E66.9 Obesity, unspecified; Z68.38 Body mass index [BMI] 38.0-38.9, adult; I25.10 Atherosclerotic heart disease of native coronary artery without angina pectoris; Z79.4 Long term (current) use of insulin; Z95.5 Presence of coronary angioplasty implant and graft; X58.XXXA Exposure to other specified factors, initial encounter; E78.5 Hyperlipidemia, unspecified; I12.9 Hypertensive chronic kidney disease with stage 1 through stage 4 chronic kidney disease, or unspecified chronic kidney disease; N18.9 Chronic kidney disease, unspecified; Z96.41 Presence of insulin pump (external) (internal)
CPT/HCPCS: 2NBSP; 74020; 74176; 81001; 82436; 93005; 93010; 96361; 96374; 96375; 96376; J1644; J1885; J2405

== ENCOUNTER 2016-12-03 15:42 | Emergency (ER) | payer OTHER ==
[~2016-12-03] VITALS: Ht 182.9 cm; Wt 124.7 kg
[~2016-12-03 15:42] MED LIST changes: +ASPIRIN EC81 M1 PO; +CLOPIDOGREL75 M1 PO; +FENOFIBRIC ACI135 M1 PO; +LIPITOR80 M1 PO; +LISINOPRIL-HCT1 EAC2 PO; +METOPROLOL TART25 M1 PO; +MONTELUKAST SOD10 M1 PO; +SNAP INSULIN P1 EACH; +VITAMIN D250000 UNIT PO
[2016-12-03 15:48] VITALS: BP 129/77
[2016-12-03] MEDS ORDERED: TRIAMCINOLONE A15 G2 TOP (16:00)
--- NOTE | 2016-12-03 16:01 | ED SKIN/ALLERGY COMPLAINT ---
History of Present Illness General Chief Complaint: Skin Rash/ Abcess Stated Complaint: SKIN RASH Source: patient Exam Limitations: no limitations Vital Signs & Intake/Output Vital Signs & Intake/Output ED Intake and Output 12/04 0000 12/03 1200 Intake Total 0 Output Total Balance 0 Intake, Oral 0 Patient 275 lb Weight Weight Reported by Patient Measurement Method Allergies Coded Allergies: No Known Allergies (12/13/15) Reconcile Medications Aspirin (Ecotrin*) 81 MG TABLET. 1 TAB PO DAILY HX CARDIAC STENT (Reported) Atorvastatin Calcium (Lipitor) 80 MG TABLET 80 MG PO DAILY HIGH CHOLESTROL ( Reported) Clopidogrel Bisulfate (Clopidogrel) 75 MG TABLET 75 MG PO DAILY HIGH BLOOD PRESSURE (Reported) Ergocalciferol (Vitamin D2) (Vitamin D2) 50,000 UNIT CAPSULE 1 CAP PO DAILY HEALTH SUPPLEMENT (Reported) Fenofibric Acid (Choline) (Fenofibric Acid) 135 MG CAPSULE.DR 135 MG PO DAILY KIDNEY HEALTH (Reported) Insulin Pump Controller (Snap Insulin Pump Controller) (Unknown Strength) EACH (Unknown Dose) insulin dependent diabetes (Reported) Lisinopril/Hydrochlorothiazide (Lisinopril-Hctz 10-12.5 MG Tab) 10 MG-12.5 MG TABLET 1 TAB PO BID HIGH BLOOD PRESSURE (Reported) Metoprolol Tartrate 25 MG TABLET 25 MG PO BID BLOOD PRESSURE (Reported) Montelukast Sodium 10 MG TABLET 10 MG PO DAILY ALLERGIES (Reported) Triamcinolone Acetonide 0.5 % CREAM..G. 1 LOREE TOP BID PRN RASH apply to affected area(s) Triage Note: PT TO TRAIGE WITH C/O POISON CLARISSE RASH TO R UPPER EXTREMITY SINCE YESTERDAY. NO OTHER COMPLAINTS. VSS. Triage Nurses Notes Reviewed? yes Onset: Gradual Duration: day(s): (1) Timing: remote history Severity: moderate Severity Numbers: 5 Location: extremities Possible Factors: exposure to allergen No Modifying Factors: none HPI: Patient is a 41-year-old male presenting to the emergency Department chief complaint of rash on the right upper extremity that started this morning. Patient reports that he has a severe allergy to poison clarisse and it usually spreads quickly. He usually comes into the emergency department for a shot of steroids which seems to help. Denies any shortness of breath any nausea vomiting fevers or chills. Does report that he's been outside recently. Has been taking Benadryl without relief. (JAGJIT RM) Past History Travel History Traveled to [place] past 21 day No Medical History Any Pertinent Medical History? see below for history Neurological: NONE EENT: NONE Cardiovascular: CAD, hypertension, hyperlipidemia Respiratory: NONE Gastrointestinal: NONE Hepatic: NONE Renal: chronic kidney disease Musculoskeletal: NONE Psychiatric: NONE Endocrine: NONE (insulin dependent), diabetes Blood Disorders: NONE Cancer(s): NONE Surgical History Surgical History: angioplasty Psychosocial History Who do you live with Spouse What is your primary language Tongan Tobacco Use: Never used Family History Family History, If Any: Relation not specified for: FH: coronary artery disease Hx Contributory? No (JAGJIT RM) Review of Systems Review of Systems Constitutional: Reports: no symptoms. Comments Review of systems: See HPI, All other systems negative. Constitutional, no chills fever or weight loss HEENT: No visual changes no sore throat no congestion Cardiovascular: No chest pain ,palpitation Skin, no jaundice Respiratory: No dyspnea cough sputum or hemoptysis GI: No nausea no vomiting Muscle skeletal: no back pain, no neck pain, Neurologic: No numbness no confusion Psych: No stress anxiety Immunology: No splenectomy or history of AIDS (JAGJIT RM) Physical Exam Physical Exam General Appearance: well developed/nourished, no apparent distress, alert, awake , comfortable Comments: Well-developed well-nourished person in no acute distress HEENT: Nose is atraumatic. Pharynx normal. No swelling or edema. Neck: Normal inspection Cardiovascular: normal JVP Respiratory: No respiratory distress.breath sounds clear to auscultation bilaterally Extremity: No edema, Neuro: Alert oriented x3, motor sensory normal Skin: Erythematous, raised vesicular rash noted on the right upper extremity approximately 4-5 cm in length, linear distribution, excoriations present. Nontender. Psych: Mood and affect is normal, memory and judgment is normal. (JAGJIT RM) Progress Differential Diagnosis: allergic reaction, contact dermatitis, irritant dermatitis, nonspecific rash Plan of Care: Current Medications Sig/Markel Start time Last Medication Dose Stop Time Status Admin Methylprednisolone 125 MG ONCE ONE 12/03 1600 AC (Solu Medrol) 12/03 1601 Comments: Patient educated on affective steroids on blood glucose level. He'll continue monitoring her sugar levels at home. Patient nontoxic. (JAGJIT RM) Departure Departure Time of Disposition: 1600 Disposition: HOME OR SELF CARE Condition: Stable Clinical Impression Primary Impression: Poison clarisse Referrals: ALINA NEWTON,DARIUS Diamond (PCP/Family) Additional Instructions: FOLLOW UP WITH PCP CALL TO MAKE APPT. USE TOPICAL STERIOD A PRESCRIBED. KEEP AN EYE ON BLOOD GLUSE LEVELS. REETURN FOR WORSENING SYMTPOMS OR CONCERNS Departure Forms: Customer Survey General Discharge Information Prescriptions: Current Visit Scripts Triamcinolone Acetonide 1 LOREE TOP BID PRN RASH #15 GM apply to affected area(s) (JAGJIT RM) PA/MORNING NANNY Co-Sign Statement Statement: ED Attending supervision documentation- [] I saw and evaluated the patient. I have also reviewed all the pertinent lab results and diagnostic results. I agree with the findings and the plan of care as documented in the PA's/MORNING NANNY's documentation. [X] I have reviewed the ED Record and agree with the PA's/MORNING NANNY's documentation. [] Additions or exceptions (if any) to the PAs/MORNING NANNY's note and plan are summarized below: [] (ERNESTO NEWTON,GIUSEPPE Farias)
== END 2016-12-03 16:05 ==
LOC: ERH 15:42
DX: L23.7 Allergic contact dermatitis due to plants, except food (principal)
CPT/HCPCS: 96372; J2930

== ENCOUNTER 2017-12-16 19:11 | Emergency (ER) | payer OTHER ==
[~2017-12-16] VITALS: Ht 182.9 cm; Wt 124.7 kg
[~2017-12-16 19:11] MED LIST changes: +TRIAMCINOLONE A15 G2 TOP
[2017-12-16 19:29] VITALS: BP 123/75
== END 2017-12-16 19:50 | disposition admitted as inpatient to this hospital (09) ==
LOC: ERH 19:11
DX: S01.25XA Open bite of nose, initial encounter (principal); W54.0XXA Bitten by dog, initial encounter